=== PATIENT | female | born 1990 | race Caucasian/White ===

== ENCOUNTER 2021-04-23 10:48 | Observation (INO) | payer OTHER, SELFPAY ==
--- NOTE | ~2021-04-23 | CT_ITS ---
EXAMINATION: CT brain wo con DATE: 04/23/2021 11:33 INDICATION: Left-sided numbness. TECHNIQUE: Computed tomography (CT) of the head was performed without intravenous contrast. The mA wa s adjusted according to patient size. Iterative reconstruction technique was employed. The dose-lengt h product was 605.33 mGy-cm. COMPARISON: None FINDINGS: There is no intracranial hemorrhage, acute infarction, or abnormal intracranial mass lesion . The ventricles are normal in size. There is mild mucosal thickening in the ethmoid sinuses. The mas toid air cells are normal. The orbits are normal. There is right-sided superior scalp scarring. IMPRESSION: 1. Normal brain. Reviewed, dictated and finalized at location A. IMPRESSION: 1. Normal brain.
--- NOTE | ~2021-04-23 | XR_ITS ---
EXAMINATION: XR chest 1V portable INDICATION: Left-sided numbness TECHNIQUE: Portable AP chest at 1225 hours COMPARISON: 06/16/2019 FINDINGS: The lungs are free of acute opacities. There is no pleural effusion or pneumothorax. The ca rdiomediastinal silhouette is normal. The visualized osseous structures are unremarkable. IMPRESSION: 1. No acute cardiopulmonary abnormality. Reviewed, dictated and finalized at location B.
--- NOTE | ~2021-04-23 | MR_ITS ---
EXAMINATION: MR brain/brain stem wo/w con DATE: 04/24/2021 11:17 INDICATION: Left-sided numbness. TECHNIQUE: Magnetic resonance imaging (MRI) of the brain and brainstem was performed without and with 18 mL MultiHance intravenous contrast. Sequences included sagittal and axial T1-weighted FSE, axial diffusion-weighted FS EPI, axial T2*-weighted GRE, axial T2-weighted FLAIR Propeller, and axial T2-we ighted Propeller. Postcontrast sequences included axial and coronal T1-weighted FSE. Apparent diffusi on coefficient (ADC) maps were created. COMPARISON: Head CT 04/23/2021 FINDINGS: There is no intracranial hemorrhage, acute infarction, or abnormal intracranial mass lesion . The ventricles are normal in size. The orbits are normal. There is mild mucosal thickening in the e thmoid sinuses. The mastoid air cells are normal. IMPRESSION: 1. Normal brain. Reviewed, dictated and finalized at location A. IMPRESSION: 1. Normal brain.
--- NOTE | ~2021-04-23 | MR_ITS ---
EXAMINATION: MR cervical spine wo/w con DATE: 04/24/2021 11:17 INDICATION: Left-sided numbness. TECHNIQUE: Magnetic resonance imaging (MRI) of the cervical spine was performed without and with 18 m L MultiHance intravenous contrast. Sequences included sagittal and axial T2-weighted FSE, sagittal T2 -weighted FS FSE, and sagittal and axial T1-weighted FSE. Postcontrast sequences included sagittal an d axial T1-weighted FS FSE. COMPARISON: None FINDINGS: Motion artifact is noted. Vertebral body heights and intervertebral disc heights are normal . The spinal cord signal intensity is normal. The following disc levels are specifically discussed: C2-C3: The disc does not extend beyond the endplate margin. There is no uncovertebral joint osteoarth ritis. There is mild bilateral facet joint osteoarthritis. There is no neural foraminal stenosis. The re is no central canal stenosis. C3-C4: The disc does not extend beyond the endplate margin. There is no uncovertebral joint osteoarth ritis. There is no facet joint osteoarthritis. There is no neural foraminal stenosis. There is no alexander tral canal stenosis. C4-C5: The disc does not extend beyond the endplate margin. There is no uncovertebral joint osteoarth ritis. There is no facet joint osteoarthritis. There is no neural foraminal stenosis. There is no alexander tral canal stenosis. C5-C6: There is a central protrusion. There is no uncovertebral joint osteoarthritis. There is no fac et joint osteoarthritis. There is no neural foraminal stenosis. There is mild central canal stenosis. C6-C7: There is a central protrusion. There is no uncovertebral joint osteoarthritis. There is no fac et joint osteoarthritis. There is no neural foraminal stenosis. There is mild central canal stenosis. C7-T1: The disc does not extend beyond the endplate margin. There is no uncovertebral joint osteoarth ritis. There is moderate bilateral facet joint osteoarthritis. There is no neural foraminal stenosis. There is no central canal stenosis. IMPRESSION: 1. Normal spinal cord. Sensitivity is moderately decreased by motion artifact. 2. Mild cervical spondylosis. Reviewed, dictated and finalized at location A.
[2021-04-23 11:12] VITALS: BP 151/90; PULSE 79; RESP 18; TEMP 36.7; O2SAT 99
[2021-04-23 12:34] LABS: Basophils Percent Auto 0.3 % (0.2-1.2); Eosinophils Absolute Auto 0.2 K/mm3 (0-0.3); Hematocrit 41.6 % (37.0-47.0); Hemoglobin 13.7 g/dL (12.0-15.0); Immature Granulocyte Absolute 0.04 K/mm3 (0.00-0.031); Immature Granulocyte Percent A 0.4 % (0-0.5); Lymphocytes Absolute Auto 2.19 K/mm3 (0.9-3.2); Mean Corpuscular HGB Conc 32.9 g/dl (32-36); Mean Corpuscular Hemoglobin 28.9 pg (26-34); Mean Corpuscular Volume 87.8 fl (80-100); Mean Platelet Volume 10.1 fl (7.4-10.4); Monocytes Absolute Auto 0.6 K/mm3 (0.1-0.6); Monocytes Percent Auto 5.1 % (2.6-8.5); Neutrophils Absolute Auto 7.9 K/mm3 (1.3-6.7); Neutrophils Percent Auto 72.2 % (45.5-73.1); Platelet Count Result 461 k/mm3 (150-375); Red Blood Count 4.74 M/mm3 (4.2-5.4); Red Cell Distribution Width 13.6 % (11.5-14.5); White Blood Count 10.9 K/mm3 (4.5-10.0)
[2021-04-23 12:43] LABS: INR 0.9; Prothrombin Time 12.1 Seconds (11.1-14.7)
[2021-04-23 12:44] LABS: Alanine Aminotransferase 29 U/L (4-35); Albumin Level 4.7 g/dL (3.5-5.1); Alkaline Phosphatase 121 U/L (38-126); Anion Gap 11 mmol/L (8-16); Aspartate Amino Transferase 27 U/L (14-36); Bilirubin,Total 0.5 mg/dL (0.2-1.3); Blood Urea Nitrogen 5 mg/dL (7-17); Calcium 9.6 mg/dL (8.4-10.2); Carbon Dioxide 22 mmol/L (22-30); Chloride 107 mmol/L (98-107); Estimated CRCL calculation 109 ml/min; Estimated Glomerular Filt Rate > 60; Glucose 82 mg/dL (65-110); Partial Thromboplastin Time 32.2 SECONDS (22.3-36.8); Sodium 140 mmol/L (137-145)
--- NOTE | 2021-04-23 12:44 | ED.GENADULT ---
HPI - General Adult General Chief complaint: Extremity Problem,Nontraumatic Stated complaint: left hand numb x 3 weeks Time Seen by Provider: 04/23/21 11:08 Source: RN notes reviewed History of Present Illness HPI narrative: Patient presents to emergency department from home for left hand numbness. Patient states that she has had numbness in the left hand over the past 3 weeks when discussed further with the patient she has had numbness in the left arm and the left leg during this time the numbness is worse distally and improves proximally she denies any weakness of the left arm or leg she denies any numbness or weakness in the right arm or leg patient states that she has had no difficulty speaking she denies any fevers or chills chest pain shortness of breath or any other symptoms Related Data Home Medications Medication Instructions Recorded Confirmed spironolactone 100 mg PO DAILY 04/23/21 04/23/21 venlafaxine [Effexor] 75 mg PO DAILY 04/23/21 04/23/21 Allergies Allergy/AdvReac Type Severity Reaction Status Date / Time No Known Allergies Allergy Unknown Unverified 04/23/21 11:19 No Known Allergies Allergy Unknown Uncoded 04/23/21 11:19 Review of Systems Review of Systems: Gen.: Denies fevers or chills Eyes: Denies eye pain or visual change ENT: Denies congestion Respiratory: Denies shortness of breath or cough CV: Denies chest pain or palpitations GI: Denies abdominal pain nausea, emesis or diarrhea Musculoskeletal: Denies back pain or muscle pain Neuro: See HPI Skin: Denies rash Except as documented, all other systems reviewed and negative [facility] Past Medical History Medical History (Updated 04/23/21 @ 13:06 by Roverto Messer DO) Patient denies significant medical history Family History Family History (Updated 12/16/17 @ 15:42 by DOCTOR UNKNOWN) Other Family history of malignant neoplasm Hypertension Social History Social History Smoking status: Never smoker Alcohol intake: current Exam Narrative: APPEARANCE: No acute distress, nontoxic, resting in bed HEENT: Normocephalic, atraumatic, OMM, TMs clear bilaterally EYES: PERRL, EOMI NECK: Supple, nontender, full range of motion without pain, no meningismus RESPIRATORY: No respiratory distress, clear to auscultation bilaterally with no rhonchi wheezing or rales CARDIOVASCULAR: RRR s murmur ABDOMINAL: Soft, nontender, nondistended MUSCULOSKELETAL: Moves all extremities. No clubbing, cyanosis or edema. NEURO: A and O ?3, following commands, speech normal, cranial nerves II through XII grossly intact,muscle strength 5 out of 5 bilateral upper and lower extremities no pronator drift, decreased pinprick sensation in the left upper and lower extremities compared to the right pinprick is less distally and improves proximally two-point tactile discrimination to 5 mm in all 5 digits of the left hand SKIN:: Warm, dry. Normal Color PSYCHIATRIC: Normal affect/mood Course Course Emergency Course: Discussed with Dr. Mccurdy presentation and work-up recommends patient have a MRI of her brain and cervical spine Discussed with STAN Gay for Dr Multani presentation work-up agrees with mission at this time Discussed with patient and family results of workup and diagnosis. Discussed need for admission. Patient and family understand and agree to current treatment plan Vital Signs Vital signs: Vital Signs Temperature 98.0 F 04/23/21 11:12 Pulse Rate 79 04/23/21 11:12 Respiratory Rate 18 04/23/21 11:12 Blood Pressure 151/90 H 04/23/21 11:12 Pulse Oximetry 99 04/23/21 11:12 Temperature 98.0 F 04/23/21 11:12 Pulse Rate 79 04/23/21 11:12 Respiratory Rate 18 04/23/21 11:12 Blood Pressure 151/90 H 04/23/21 11:12 Pulse Oximetry 99 04/23/21 11:12 Medical Decision Making Vital Signs Vital Signs: Vital Signs Temperature 98.0 F 04/23/21 11:12 Pulse Rate 79 04/23
--- NOTE | 2021-04-23 12:48 | ECG_ITS ---
Measurements Intervals [place] Rate: 75 P: 22 FL: 146 QRS: -2 QRSD: 90 T: 24 QT: 364 QTc: 407 Interpretive Statements SINUS RHYTHM DELAYED PRECORDIAL R/S TRANSITION BASELINE ARTIFACT- I, II, AVR, AVL BORDERLINE ECG Electronically Signed On 04-23-2021 13:32:39 CDT by Rao Iverson D.O.
[2021-04-23 12:55] LABS: Troponin I < 0.012 ng/mL (0.000-0.034)
[2021-04-23 13:12] VITALS: BP 142/81; PULSE 77; TEMP 36.6; O2SAT 98
--- NOTE | 2021-04-23 14:06 | PC.NURSE ---
attempted to call report to floor. nurse not avaiable
--- NOTE | 2021-04-23 15:15 | PM.IMHP ---
H&P: HPI History of Present Illness Date/Time: 04/23/21 15:15 Chief Complaint: Left-sided numbness. Narrative: This is a 30-year-old female with depression, anxiety, and polycystic ovarian syndrome who presented to the emergency department earlier today via private vehicle from home for evaluation of left-sided numbness. About 3 weeks ago she was driving home from work when her left hand started to feel numb. Initially it was just around her 4th and 5th fingers but it progressed up her hand and through the upper arm and has been pretty consistent since that time. She describes it almost as as if it it had fallen asleep in a starting to wake back up. Since that time she has had intermittent paresthesias of the leg as well. Sometimes at night she will have mild numbness and tingling in her fingers but that resolves quite quickly when shaking her hands. The symptoms are quite different. She has no history of carpal or cubital tunnel. She denies neck pain and upper extremity weakness. No recent injuries, whiplash, or chiropractic adjustments. She has no history of stroke, multiple sclerosis, or B12 deficiency. The patient is right-handed. Review of Systems Review of Systems: Twelve systems were reviewed with pertinent positives and negatives as per HPI. No fever, chills, or sweats. No recent cold or flu symptoms. She denies auditory visual changes. No vertigo. No focal weakness. She denies palpitation, racing heart, history of cardiac dysrhythmia. No history of autoimmune disease. Except as documented, all other systems were reviewed and are negative. [facility] Past Medical History Medical History (Updated 04/24/21 @ 00:33 by Deidra Duque PA-C) Depression with anxiety Polycystic ovarian syndrome Surgical History Surgical History History of section x3. History of cholecystectomy History of dilation and curettage History of incisional hernia repair History of tubal ligation Family History Family History (Updated 04/24/21 @ 00:30 by Deidra Duque PA-C) Mother Hypertension Grandparent Cancer Father Chronic obstructive pulmonary disease Social History Social History (Updated 04/24/21 @ 00:31 by Deidra Duque PA-C) Social History: Surrogate decision maker: Teddy Angeles, spouse. Code status: Full code. Smoking status: Never smoker Second hand tobacco smoke exposure: No Alcohol intake: never Substance use type: marijuana Last use: 04/22/21 Additional living arrangements comments: The patient lives in [place] with her and 3 children. Additional occupation/education comments: Works at a [employer] office. Sexual Orientation (if Verbalized by the Patient): . Meds Home Medications and Allergies Home Medications Medication Instructions Recorded Confirmed Type spironolactone 100 mg PO DAILY 04/23/21 04/23/21 History venlafaxine [Effexor] 75 mg PO DAILY 04/23/21 04/23/21 History Allergies Allergy/AdvReac Type Severity Reaction Status Date / Time No Known Allergies Allergy Unknown Unverified 04/23/21 11:19 Vital Signs Vital Signs - 24 hr 04/23/21 11:12 04/23/21 13:12 Temperature 98.0 F 98 F Pulse Rate 79 77 Respiratory Rate 18 Blood Pressure 151/90 H 142/81 H Pulse Oximetry 99 98 Exam Narrative: General: Well-developed female in the semi-Guillen position in bed in no distress. Weight: 94.1 kg. BMI: 39.2. HEENT: Normocephalic, atraumatic. PERRL, EOMI. Sclerae anicteric. Oral mucosa moist. Oropharynx clear. Neck: Supple. No carotid bruits. Respiratory: Lungs are clear to auscultation bilaterally. Cardiovascular: Regular rate and rhythm with S1-S2. Gastrointestinal: Abdomen is soft, nontender, and nondistended with positive bowel sounds. Skin: Warm and dry. No rash or lesions on limited exam. Extremities: No cyanosis, clubbing, or edema. Radial and pedal pulses intact. Neur
--- NOTE | 2021-04-23 15:35 | ADMGEN ---
This patient, Marisol Angeles, was admitted to Medical Room 260-01. Patient oriented to hospital policies and general routines including ID bracelet, bed and alarms, visiting hours, pain management, procedures, bathroom and other care routines, personal items, smoking policy, room service/diet, and visiting hours. Information on how to activate the Rapid Response Team has been discussed. Patient/Family are encouraged to report perceived risks to care and to ask questions if they do not understand what they are told or what they should do.
[2021-04-23 15:38] VITALS: BMI 39.2
[2021-04-23 17:00] VITALS: BP 135/81; PULSE 70; RESP 18; TEMP 36.2; O2SAT 98
[2021-04-23 17:01] VITALS: PULSE 72
[2021-04-23 20:00] VITALS: PULSE 67
[2021-04-23 22:00] VITALS: BP 122/70; PULSE 62; RESP 16; TEMP 36.4; O2SAT 100
[2021-04-24] VITALS (7 sets, daily range): BP systolic 125–131; BP diastolic 67–72; PULSE 56–92; RESP 16–18; TEMP 35.6–36.7; O2SAT 99–100
[2021-04-24 06:04] LABS: Cholesterol 193 mg/dL (0-200); HDL Direct 38 mg/dL; Triglycerides 157 mg/dL (<150)
[2021-04-24 06:16] LABS: LDL Cholesterol Direct 111 mg/dL
[2021-04-24] MEDS: VENLAFAXINE HCL 75 MG TABLET PO (08:40)
[2021-04-24] MEDS: SPIRONOLACTONE 50 MG TABLET 100 MG PO (08:40)
--- NOTE | 2021-04-24 11:41 | WPDNEURCNPN ---
Consult date: 05/15/21 Time Seen: 11:00 HPI: Marisol Angeles is a 30 year old female Has been admitted to [facility] through the emergency room for the complaints of left-sided numbness in addition to the ongoing history of 1. Depression 2. Anxiety 3. Polycystic ovarian syndrome 4. History of multiple surgeries such as x3, cholecystectomy, D and C, incisional hernia repair, and tubal ligation. Is no history of alcohol consumption, she is not a smoker, but does have a history of use of marijuana, evaluation up until now includes a CBC with no leukocytosis platelet count of 461, triglycerides of 151 with cholesterol 193 and HDL of only 38 B12 529 TSH 1.5 x-ray chest negative Review of Systems Review of Systems: All systems reviewed & are unremarkable except as noted in HPI and below PMFSH Past Medical History Medical History Depression with anxiety Polycystic ovarian syndrome Surgical History Surgical History History of section x3. History of cholecystectomy History of dilation and curettage History of incisional hernia repair History of tubal ligation Family History Family History Mother Hypertension Grandparent Cancer Father Chronic obstructive pulmonary disease Social History Social History Social History: Surrogate decision maker: Teddy Angeles, spouse. Code status: Full code. Smoking status: Never smoker Second hand tobacco smoke exposure: No Alcohol intake: never Substance use type: marijuana Last use: 04/22/21 Additional living arrangements comments: The patient lives in [place] with her and 3 children. Additional occupation/education comments: Works at a [employer] office. Sexual Orientation (if Verbalized by the Patient): . Meds Home Medications and Allergies Home Medications Medication Instructions Recorded Confirmed Type spironolactone 100 mg PO DAILY 04/23/21 04/23/21 History venlafaxine 75 mg PO DAILY 04/23/21 04/23/21 History Allergies Allergy/AdvReac Type Severity Reaction Status Date / Time No Known Allergies Allergy Unknown Unverified 04/23/21 11:19 Vital Signs Vital Signs - 24 hr 04/23/21 13:12 04/23/21 17:00 04/23/21 17:01 Temperature 36.6 C 36.2 C L Pulse Rate 77 70 72 Respiratory Rate 18 Blood Pressure 142/81 H 135/81 Pulse Oximetry 98 98 04/23/21 20:00 04/23/21 22:00 04/24/21 00:00 Temperature 36.4 C Pulse Rate 67 62 64 Respiratory Rate 16 Blood Pressure 122/70 Pulse Oximetry 100 04/24/21 04:00 04/24/21 06:00 Temperature 36.7 C Pulse Rate 56 L 72 Respiratory Rate 16 Blood Pressure 131/67 Pulse Oximetry 100 Results Labs CBC & Chem 7: 04/23/21 12:21 04/23/21 12:21 Labs: Short CBC 04/23/21 Range/Units 12:21 WBC 10.9 H (4.5-10.0) K/mm3 Hgb 13.7 (12.0-15.0) g/dL Hct 41.6 (37.0-47.0) % Plt Count 461 H (150-375) k/mm3 BMP 04/23/21 12:21 Sodium 140 Potassium 4.0 Chloride 107 Carbon Dioxide 22 BUN 5 L Creatinine 0.70 Glucose 82 Calcium 9.6 Cardiac Enzymes 04/23/21 Range/Units 12:21 Troponin I < 0.012 (0.000-0.034) ng/mL Liver Function 04/23/21 Range/Units 12:21 Total Bilirubin 0.5 (0.2-1.3) mg/dL AST 27 (14-36) U/L ALT 29 (4-35) U/L Alkaline Phosphatase 121 (38-126) U/L Albumin 4.7 (3.5-5.1) g/dL Quality VTE Prophylaxis VTE prophylaxis: mechanical ordered
--- NOTE | 2021-04-24 16:50 | PM.DS ---
DS: Admitting Diagnosis Admitting Diagnosis LUE numbness DS: Discharge Diagnosis Discharge Diagnosis (1) Polycystic ovarian syndrome: Code(s): E28.2 - Polycystic ovarian syndrome Status: Acute (2) Left sided numbness: Code(s): R20.0 - Anesthesia of skin Status: Acute (3) Leukocytosis: Qualifiers: Leukocytosis type: unspecified Qualified Code(s): D72.829 - Elevated white blood cell count, unspecified Code(s): D72.829 - Elevated white blood cell count, unspecified Status: Acute (4) Thrombocytosis: Code(s): D47.3 - Essential (hemorrhagic) thrombocythemia Status: Acute (5) Hypertriglyceridemia: Code(s): E78.1 - Pure hyperglyceridemia Status: Acute DS: Summary Hospital Course Reason for hospitalization: Left sided numbness Hospital Course: 30-year-old female with past medical history of depression, anxiety and polycystic ovarian syndrome presented with complaints of left-sided numbness. Patient was worked up for possible stroke for which a CT head and MRI was done however it did not reveal any concerning findings. Given her age and laterality of her symptoms she was also worked up for multiple sclerosis with MRI of the brain and cervical spine however did not reveal any concerning findings. Patient reports that she noted left-sided numbness on her 4th and 5th digit about 3 weeks ago which gradually increased and included the entire upper left arm, she is now occasionally also getting numbness tingling and paresthesias over the left leg as well and often times on her left side of the face as well. The exam revealed left-sided decrease and perception of blunt and sharp sensations. Temperature sensations were intact to. The right upper and lower extremity showed hyper esthesia. The MRI of the cervical spine did reveal some concerns cervical spondylosis possible her neurological findings are related to this. She did have a slightly elevated WBC to 10.9 which is being considered as reactive. She also was noted to have a platelet count of 461, this is also possibly reactive. Patient was also seen by Neurology and is being recommended outpatient follow-up for further care. Time Spent with Patient Time attestation: Total time spent providing and/or coordinating discharge services: Greater than 30 minutes Exam Const: General: cooperative HENMT: Head: normal to inspection Eyes: General: appearance normal, both eyes and all related structures Neck: Neck: normal visual inspection Chest: Chest palpation & inspection: normal inspection of the chest Resp: Effort & Inspection: normal respiratory effort Auscultation: clear to auscultation bilaterally Cardio: Jugular venous distension: no JVD Palpation: normal PMI Rate: regular rate Rhythm: regular rhythm Heart sounds: S1 normal heart sound present and S2 normal heart sound present GI: Inspection: normal to inspection GI Palp: Yes Soft to palpation Auscultation: normal bowel sounds : General: Yes bimanual renal exam normal bilaterally Back/Spine/Pelvis: Back: no CVA tenderness Skin: General skin exam: normal color, no rashes or lesions noted and elasticity normal Neuro: General: oriented to person, oriented to place and oriented to time Cranial nerves: Yes CN's II-XII intact bilaterally and Yes Nystagmus not present Speech: normal speech Gait exam (Neuro): Normal gait present Motor exam (neuro): 5/5 motor strength present throughout Sensory Exam: other (decreased sensory perception LUE and LLE; hyperaesthesia over the RUE, RLE) Deep tendon reflexes (DTR's): Rt Biceps (C5, C6): 2+ and Left biceps reflex intensity grade: 2+ Extrem: General: normal to inspection, full ROM and capillary refill normal Psych: Appearance: grossly normal DS: Data Data Completed and Pending Labs on day of discharge: Labs from last 24 hours 04/24/21 04/24/21 05:14 05:13 Triglycerides 157 H Cholesterol 193 LDL C
== END 2021-04-24 17:39 | disposition home or self-care (01) ==
LOC: ANHED 13:06 → ANH2MED 15:17
PROVIDERS: Physician Assistant; Admitting Provider Internal Medicine; Emergency Provider Emergency Medicine; PCP Internal Medicine Infectious Disease; Visit Provider Internal Medicine
DX: E28.2 Polycystic ovarian syndrome (principal); R20.0 Anesthesia of skin; D72.829 Elevated white blood cell count, unspecified; D47.3 Essential (hemorrhagic) thrombocythemia; E87.1 Hypo-osmolality and hyponatremia; F41.8 Other specified anxiety disorders; F12.90 Cannabis use, unspecified, uncomplicated; Z79.899 Other long term (current) drug therapy
CPT/HCPCS: 36415; 70450; 70553; 71045; 72156; 80053; 80061; 82607; 84443; 84484; 85025; 85610; 85730; 93005; 99285; A9270; A9577; G0378; G0379

== ENCOUNTER 2021-07-08 09:35 | Outpatient (CLI) | payer OTHER, SELFPAY ==
--- NOTE | 2021-07-08 11:00 | NEURO_ITS ---
Impression: # Complains of left upper and lower extremity numbness. # Normal nerve conduction study of left upper and lower extremities. # Normal needle/EMG exam. # Considering left side involvement cervical and brain evaluation needs to be done. Nerve Conduction Studies Anti Sensory Summary Table Stim Site NR Peak (ms) P-T Amp (?V) Site1 Site2 Delta-P (ms) Dist (cm) Andre (m/s) Left Median Anti Sensory (2-3nd Digit) Wrist 2.6 76.2 Wrist 2-3nd Digit 2.6 14.0 54 Wrist 2.7 90.1 Wrist 2-3nd Digit 2.6 14.0 54 Left Radial Anti Sensory (Base 1st Digit) Wrist 1.7 16.8 Wrist Base 1st Digit 1.7 0.0 Left Sup Fibular Anti Sensory (Ant Lat Mall) 14 cm 2.4 19.5 14 cm Ant Lat Mall 2.4 12.0 50 Left Sural Anti Sensory (Lat Mall) Calf 3.3 38.9 Calf Lat Mall 3.3 16.0 48 Left Ulnar Anti Sensory (5th Digit) Wrist 2.1 58.9 Wrist 5th Digit 2.1 14.0 67 Motor Summary Table Stim Site NR Onset (ms) O-P Amp (mV) Site1 Site2 Delta-0 (ms) Dist (cm) Andre (m/s) Left Median Motor (Abd Poll Brev) Wrist 2.5 6.4 Elbow Wrist 3.8 26.0 68 Elbow 6.3 6.0 Left Peroneal Motor (Vastus Med) Ankle 3.3 7.5 Popit Ankle 6.5 36.0 55 Popit 9.8 7.4 Left Tibial Motor (Abd Ritchie Brev) Ankle 3.9 6.0 Knee Ankle 7.2 37.0 51 Knee 11.1 7.5 Left Ulnar Motor (Abd Dig Minimi) Wrist 2.0 6.5 A Elbow Wrist 5.7 29.0 51 A Elbow 7.7 3.8 B Elbow Wrist 3.9 22.0 56 B Elbow 5.9 6.4 F Wave Studies NR F-Lat (ms) L-R F-Lat (ms) Left Median (Mrkrs) (Abd Poll Brev) 22.87 Left Peroneal (Mrkrs) (EDB) 40.54 Left Tibial (Mrkrs) (Abd Hallucis) 41.49 Left Ulnar (Mrkrs) (Abd Dig Min) 22.78 EMG Side Muscle Nerve Root Ins Act Fibs Amp Dur Recrt Comment Left 1stDorInt Ulnar C8-T1 Nml Nml Nml Nml Nml Left Ext Indicis Radial (Post Int) C7-8 Nml Nml Nml Nml Nml Left Ext Digitorum Radial (Post Int) C7-8 Nml Nml Nml Nml Nml Left BrachioRad Radial C5-6 Nml Nml Nml Nml Nml Left PronatorTeres Median C6-7 Nml Nml Nml Nml Nml Left Abd Poll Brev Median C8-T1 Nml Nml Nml Nml Nml Left AntTibialis Dp Br Fibular L4-5 Nml Nml Nml Nml Nml Left Gastroc Tibial S1-2 Nml Nml Nml Nml Nml Left Fibularis Long Sup Br Fibular L5-S1 Nml Nml Nml Nml Nml Left Flex Dig Long Tibial L5-S2 Nml Nml Nml Nml Nml Left Ext Dig Brev Dp Br Fibular L5, S1 Nml Nml Nml Nml Nml MTDD
== END 2021-07-08 09:36 | disposition home or self-care (01) ==
PROVIDERS: PCP Internal Medicine Infectious Disease; Visit Provider Internal Medicine Infectious Disease
DX: R20.2 Paresthesia of skin (principal)
CPT/HCPCS: 95886; 95911

== ENCOUNTER 2022-11-17 08:23 | Outpatient (CLI) | payer OTHER, SELFPAY ==
--- NOTE | 2022-11-17 11:00 | NEURO_ITS ---
Impression: # Complains of intermittent numbness of hands. # No Carpal Tunnel Syndrome or ulnar neuropathy. # Normal needle/EMG exam including Biceps. # Clinical correlation recommended. Motor Nerve Conduction Upper Extremities Median Nerve Conduction Velocity (m/sec) Terminal Latency (msec) Response Voltage(mV) Elbow-Wrist Wrist Elbow Wrist Right 60 3.2 9 7 Left 62 3.1 5 5 Ulnar Nerve Conduction Velocity (m/sec) Terminal Latency (msec) Response Voltage(mV) Above Elbow Below Elbow Wrist Above Elbow Below Elbow Wrist Right 59 2.0 6 9 Left 60 2.3 5 7 F-Wave Latency Median (ms) Ulnar (ms) Right 24.5 23.7 Left 23.6 23.8 Sensory Nerve Conduction Upper Extremities Median Nerve Stimulation Terminal Latency (msec) Wrist/Digit Response Voltage (uV) Wrist Right 3.3/3.3 21/22 Left 2.9/2.8 88/92 Ulnar Nerve Stimulation Terminal Latency (msec) Wrist/Digit Response Voltage (uV) Wrist Right 2.3 22 Left 2.4 53 Radial Nerve Terminal Latency (msec) Response Voltage(mV) Right 1.9 41 Left 2.0 41 Left Right Muscles Examined Fibrillation Fasciculation Scarcity Voltage Duration Left Right Left Right Left Right Left Right Left Right X X Deltoid X X Biceps X X Brachioradialis X X Triceps X X Pronator Teres X X Ext Indicis X X Ext Digitorum X X Abd Poll Brev X X 1st Dorsal Interosseus Paraspinals MTDD
== END 2022-11-17 08:24 | disposition home or self-care (01) ==
LOC: ANHNEURO 08:25
PROVIDERS: PCP Internal Medicine Infectious Disease; Visit Provider Psychiatry & Neurology Neurology
DX: R20.2 Paresthesia of skin (principal)
CPT/HCPCS: 95886; 95911

== ENCOUNTER 2023-04-09 15:28 | Outpatient (CLI) | payer OTHER, SELFPAY ==
--- NOTE | ~2023-04-09 | MR_ITS ---
EXAMINATION: MR brain/brain stem wo/w con DATE: 04/09/2023 16:15 INDICATION: R20.0 - Anesthesia of skin TECHNIQUE: Magnetic resonance imaging (MRI) of the brain and brainstem was performed without and with 18 mL MultiHance intravenous contrast. Sequences included sagittal and axial T1-weighted SE, axial d iffusion-weighted FS EPI ASSET, axial T2*-weighted GRE, axial T2-weighted FLAIR Propeller, and axial T2-weighted Propeller. Postcontrast axial and coronal T1-weighted SE was obtained. Apparent diffusion coefficient (ADC) maps were created. COMPARISON: MR brain 04/24/2021 FINDINGS: No abnormal restricted diffusion to suggest acute ischemic infarct. No MRI evidence of hemorrhage or extra-axial collection. No abnormal enhancing lesion. No suspicious foci of susceptibility to suggest prior intraparenchymal hemorrhage. Normal white matter signal. No evidence of advanced or lobar pred ominant parenchymal volume loss. The basilar cisterns are patent. Flow voids are preserved. Paranasal sinuses are within normal limits. Globes and orbital contents are within normal limits. IMPRESSION: Normal MR brain findings. Reviewed, dictated and finalized at location K. IMPRESSION: Normal MR brain findings.
== END 2023-04-09 15:29 | disposition home or self-care (01) ==
LOC: ANHIMG 15:29
PROVIDERS: PCP Internal Medicine Infectious Disease; Visit Provider Student in an Organized Health Care Education/Training Program
DX: R20.0 Anesthesia of skin (principal)
CPT/HCPCS: 70553; A9577

== ENCOUNTER 2023-06-23 03:04 | Day surgery (SDC) | payer OTHER, SELFPAY ==
[2023-06-10 12:40] VITALS: BMI 37.0
--- NOTE | 2023-06-10 12:44 | PC.NURSE ---
Report to the Outpatient Waiting Room, entrance under the green pavilion located off [facility], at time 0930 on date 06/23/23. Planned Procedure Time: 1130. Time changes happen often and if your time is changed the preop area will call you the afternoon before. - You and your visitor will be asked to self-screen and do not enter if you have any COVID symptoms. - A mask is optional within the hospital at this time. Patients may have clear liquids (water, carbonated beverages, clear teas, apple juice) until 3 hours prior to surgery with a maximum of 20 ounces. - No food from midnight until time of surgery Take the following medications with a SIP of water the morning of surgery: CLONAZEPAM IF NEEDED, GABAPENTIN, VENLAFAXINE DO NOT STOP ANY OF YOUR OTHER PRESCRIPTION MEDICATIONS PRIOR TO SURGERY ?EXCEPT THE FOLLOWING Medications to discontinue per physician: N/A Date to take last dose: N/A Please no make-up, nail spanish, hairspray, perfume, deodorant, or body powder the day of surgery. No jewelry (including any body piercings) or valuables the day of surgery, leave them at home. Please take a shower or bath the night before, or the morning of, surgery with an antibacterial soap. Wear comfortable, loose fitting clothing. - Jewelry must be removed prior to entering the operating room. Rings and piercings that are not removed may be cut off. - The hospital will not accept responsibility for valuables. - Please leave all valuables, including medications, at home the day of surgery. If you are going home after surgery, a licensed car pick up driver must drive you home. - NO public transportation without another adult if you receive anesthesia. - We recommend that an adult stay with you for 24 hours following discharge. - We also recommend that you do not drive, make important decision, drink alcoholic beverages, or take any drugs that were not prescribed by your health care provider for at least 24 hours after your discharge time. Follow any additional instructions given to you from your surgeon. If you or anyone in your household have experienced Covid symptoms in the past week, please notify your surgeon or the nurse liaison at the phone number below for possible testing. Telephone instructions given to PT - GO LEBLANC and asked if any additional questions and then verbalized understanding. Patient advised to call surgeon office or pre surgery nurse liaison [phone] if any additional questions.
[2023-06-23 09:43] VITALS: BP 112/95; PULSE 80; RESP 20; TEMP 36.5; O2SAT 99
[2023-06-23] MEDS: LACTATED RINGERS 1,000 ML 30 ML IV CONT ×2 (10:01→13:08)
[2023-06-23] MEDS: ACETAMINOPHEN 500 MG TABLET 1000 MG PO (10:02)
--- NOTE | 2023-06-23 11:44 | WPDANESEPPF ---
Anes - Initial Pre Proc Eval Procedure: Operation Date: 06/23/23 11:30 Proposed Procedures p Hysteroscopy with Ida Endometrial Ablation - Bety Smith MD Date/Time: 06/23/23 11:44 Surgeon: Bety Smith MD Pre Op Diagnosis: Menorrhagia Patient Data Age: 32 Gender: F Height: 1.55 m Weight: 86.4 kg Last Vital Signs Temp 36.5 C 06/23/23 09:43 Pulse 80 06/23/23 09:43 Resp 20 06/23/23 09:43 BP 112/95 H 06/23/23 09:43 Pulse Ox 99 06/23/23 09:43 O2 Del Method Room Air 06/23/23 09:43 Allergies Allergy/AdvReac Type Severity Reaction Status Date / Time No Known Allergies Allergy Unknown Verified 06/23/23 09:41 Home Medications Medication Instructions Recorded Confirmed Type spironolactone 100 mg tablet 100 mg PO DAILY PCOS 04/23/21 06/10/23 History aripiprazole 5 mg tablet (Abilify) 5 mg PO HS 10/08/21 06/10/23 History trazodone 50 mg tablet 50 mg PO BID 10/08/21 06/10/23 History venlafaxine 150 mg tablet,extended 150 mg PO DAILY 10/08/21 06/10/23 History release 24 hr venlafaxine 37.5 mg 37.5 mg PO DAILY 10/08/21 06/10/23 History tablet,extended release 24 hr clonazepam 1 mg tablet 1 mg PO DAILY PRN Anxiety 03/23/23 06/10/23 History gabapentin 300 mg capsule 300 mg PO TID #90 caps 03/23/23 06/10/23 Rx Patient hx anesthesia problems: none Family hx anesthesia problems: none Results Review: All pre-operative results and documents have been reviewed as part of the pre-operative evaluation. [facility] Past Medical History Medical History Depression with anxiety Polycystic ovarian syndrome Surgical History Surgical History History of section x3. History of cholecystectomy History of dilation and curettage History of incisional hernia repair History of tubal ligation Family History Family History Mother Hypertension Grandparent Cancer Father Chronic obstructive pulmonary disease Social History Social History Social History: Surrogate decision maker: Teddy Angeles, spouse. Code status: Full code. Smoking packs per day: 1 Smoking cigarettes per day: 20.0 Years smoked: 5 Smoking pack-years: 5.00 Smoking status: Former smoker Tobacco type: cigarettes Second hand tobacco smoke exposure: No Smoking end date: 09/13/12 Alcohol intake: current Alcohol use details: SPECIAL OCCASIONS Substance use: current Substance use type: marijuana Last use: 04/22/21 Lack of Transportation: No Lack of Food: Never True Current Housing: I Have Housing Concerned About Future Housing: No Difficulty Paying Gas/Electric Bills: No Difficulty Paying for Meds: No Currently Unemployed: No Education: Associate Degree Difficulty w/ Childcare or Family Care: No Living arrangements: with family Additional living arrangements comments: The patient lives in [place] with her and 3 children. Additional occupation/education comments: Works at a [email or web address]. Gender identity (if verbalized by the patient): Female Sexual Orientation (if Verbalized by the Patient): . Spiritual care concerns: No Anes - Eval Final PreProcedure Day of Procedure 06/23/23 11:44 Patient weight: obese Heart: regular rate and rhythm Lungs: clear to auscultation Airway: Mallampati scale class II Neurological: alert and oriented Last oral intake: >/= 8 hours ASA classification: III Emergent: no Anesthetic plan: proceed Anesthesia type and monitoring: general GIVS and standard monitoring Results Review: All pre-operative results and documents have been reviewed as part of the pre-operative evaluation. Informed Consent: The patient's anesthetic plan and its attendant risks and benefits were discussed with the patient/family
--- NOTE | 2023-06-23 12:31 | WPDHPUPDATE1 ---
History and Physical Update Update Date/Time: 06/23/23 12:31 History and Physical has been reviewed, including an updated exam of the patient. There are NO changes in the patient's condition. Risks, benefits, and alternatives have been discussed and questions answered. Patient agrees to proceed with procedure.
[2023-06-23 13:08] VITALS: BP 130/72; PULSE 75; RESP 18; TEMP 36; O2SAT 99
--- NOTE | 2023-06-23 13:14 | W.PM.PROC2 ---
Procedure Note - Detailed Date of Procedure 06/23/23 Pre-op Diagnosis Menorrhagia Post-op Diagnosis Same Procedure Performed endometrial ablation with hysteroscopy d&c Surgeon Bety Smtih MD Anesthesia MAC Indications Severe menorrhagia Findings Normal vulva vagina and cervix. Normal endometrium. Description of Procedure The patient was taken to the operating room. She was prepped and draped in the dorsal lithotomy position after induction of mac anesthesia. A speculum was placed in the vagina. Cervix grasped with a tenaculum. The cervix was dilated to about 1 cm. The hysteroscope was inserted. The above findings were noted. Endometrial curettage was performed with a medium-size curette. All surfaces of the endometrium were affected by the curettage. The specimens were collected and sent to pathology. Measurements were taken of the uterus and cervix. The uterine length was then entered into the hand piece of the Ida device. The device was inserted into the intrauterine cavity. The array of the device was expanded. The balloon cuff was inflated. A good seal was achieved. The energy and safety cycles were initiated and completed. The array was collapsed and the instrument was withdrawn after deflating the balloon cuff. Hysteroscope was reinserted. Above findings were noted. The hysteroscope was removed. The patient tolerated the procedure well. The speculum and tenaculum were removed. She was taken to recovery in stable condition. Sponge lap and needle counts were correct x2. Estimated Blood Loss 15 Pathology Yes Complications No immediate complications Condition Stable Disposition Same day
[2023-06-23 13:20] VITALS: BP 114/75; PULSE 48; RESP 18; O2SAT 99
--- NOTE | 2023-06-23 13:33 | SUR.PHASEI ---
CORRECTION: NO IV BAG WAS INITIATED IN PACU.
[2023-06-23 13:37] VITALS: BP 113/65; PULSE 45
[2023-06-23] MEDS: ONDANSETRON INJ 4 MG/2 ML VIAL IV PUSH (13:50)
[2023-06-23] MEDS: oxyCODONE HCL (*CRX) 5 MG TAB IR PO (13:55)
[2023-06-23] MEDS: KETOROLAC 30 MG/ML VIAL (*BKC) IV PUSH (14:03)
[2023-06-23 14:05] VITALS: BP 105/67; PULSE 50
[2023-06-23 14:35] VITALS: BP 130/75; PULSE 63
== END 2023-06-23 14:56 | disposition home or self-care (01) ==
PROVIDERS: PCP Internal Medicine Infectious Disease; Visit Provider Obstetrics & Gynecology
PROC: 0U5B8ZZ Destruction of Endometrium, Via Natural or Artificial Opening Endoscopic (ICD-10-PCS; CPT 58563; principal; 2023-06-23 11:30)
DX: N92.0 Excessive and frequent menstruation with regular cycle (principal); F41.8 Other specified anxiety disorders; E28.2 Polycystic ovarian syndrome; Z87.891 Personal history of nicotine dependence; F12.90 Cannabis use, unspecified, uncomplicated; E66.9 Obesity, unspecified; Z68.36 Body mass index [BMI] 36.0-36.9, adult
CPT/HCPCS: 58563; 88305; A9270; J1100; J1885; J2250; J2405; J2704; J3010; J7120

== ENCOUNTER 2025-04-04 09:34 | Outpatient (CLI) | payer OTHER, SELFPAY ==
--- OUTSIDE RECORDS SUMMARY | 2025-04-04 09:44 | XMS_ITS | Clinical Summary ---
Author Organization [facility] Address [address] [place] [address] Care Team Providers Care Product Operations Associate Name Role Phone Josephine Sanchez MD Primary Care Provider Source Comments [facility] [employer],non-owned Affiliates and Associated Physician Practices is amultiple site organization consisting of ambulatory clinics and hospital sitesin [place], [place], [place] and [place]. This disclosure is being madepursuant to the Care Everywhere program and may not contain all information available regarding this patient. Last updated 18.[facility] [employer] Allergies No known active allergies Social History Tobacco Use Types Packs/Day Years Used Date Smoking Tobacco: Never Smokeless Tobacco: Never Comments No Sex and Gender Information Value Date Recorded Sex Assigned at Not on file Legal Sex Female 5:18 PM [employer] Gender Identity Not on file Sexual Orientation Not on file Last Filed Vital Signs Vital Sign Reading Time Taken Comments Blood Pressure 126/78 09/04/2017 10:06 AM [employer] Pulse 70 09/04/2017 10:06 AM [employer] Temperature 37.2 C (99 F) 09/04/2017 10:06 AM [employer] Respiratory Rate - - Oxygen Saturation 98% 09/04/2017 10:06 AM [employer] Inhaled Oxygen Concentration - - Weight 90.7 kg (200 lb) 09/04/2017 10:06 AM [employer] HEL[employer] Height 154.9 cm (5' 1) 09/04/2017 10:06 AM [employer]IC HEL[employer] Body Mass Index 37.79 09/04/2017 10:06 AM [employer] HEL[employer] Plan of Treatment Health Maintenance Due Date Last Done Comments HIV SCREENING 2004 HEPATITIS C SCREENING 07/18/2007 DTAP/TDAP/TD VACCINES (1 - Tdap) 2008 HEPATITIS B VACCINE (1 of 3 - 19+ 3-dose series) 2008 PAP SMEAR 2010 HPV VACCINE (1 - 3-dose SCDM series) 2016 COVID-19 VACCINE (1 - 2023-2 5 season) 2024 DEPRESSION SCREENING 09/13/2024 INFLUENZA VACCINE (#1) 2025 ZOSTER VACCINE (1 of 2) 2039 HIB VACCINE Aged Out No longer eligi ble based on patient's age to complete this topic MENINGOCOCCAL (Group B) VACC INE SHARED DECISION-MAKING Aged Out No longer eligibl e based on patient's age to complete this topic MENINGOCOCCAL GROUPS A/C/Y/W VACCINE Aged Out No longer eligible b ased on patient's age to complete this topic PNEUMOCOCCAL VACCINE Aged Out No long er eligible based on patient's age to complete this topic Insurance [facility] Care Teams Product Operations Associate Relationship Specialty Start Date End Date Josephine Sanchez MD [address], [place] [id number] PCP - General Internal Medicine 09/04/17
--- OUTSIDE RECORDS SUMMARY | 2025-04-04 09:45 | XMS_ITS | Data Portability ---
Author Organization [facility] Address [address] [place] [address] [place] [address] Care Team Providers Care Wax Blender Name Role Phone KAZ BURT Primary Care Provider Assessment Encounter Date Assessment Date Assessment LastModified by Organization Details LastModified Time 08/28/2024 08/28/2024 Annual gynecological exam performed. Patient will come back in a year unless there are new symptoms. Not available 08/28/2024 17:14:20 Plan of Treatment Reminders Order Date Submit Date Provider Last Modified By Organization Details Last Modified Time Details Appointments None recorded. Lab None recorded. Referral None recorded. Procedures None recorded. Surgeries None recorded. Imaging US, transvagina l 2022 023 [email or web address] [address], [address], [place], [address], 18:07:26 Medication Orders None recorded. Patient TargetsNo targets recorded. Patient InstructionsNo instructions recorded. Reason for Referral None Reported. Results Created Date Observation Date Name Description Value Unit Range Abnormal Flag Note LastModifiedBy Organization Detail LastModifiedTime 08/28/20 24 08/28/2024 IMAGE GUIDE D PAP AND HPV REGAR DLESS image guided Pap, HPV regardless of Pap result SEE RESULT S BELOW abnormal CASE REPOR T: Cytol ogy Gynec ologi elin Repor t Case: [id number] Autho betzy g Provi brad: Eva Smith MD Colle cted: 08/28 1712 Order ing Locat ion: [place] [facility] Recei alberto: 08/29 0153 First Eric n: Hali Walsh, CT Rescr een: Nydia Triana, PUJA Speci men: Eric dailey Pap - Image d, Cervi x STATE MENT OF ADEQU ACY: Satis facto ry for evalu ation Trans forma tion zone compo nent prese nt ----- ----- ----- ----- ----- ----- ----- ----- ----- ----- ----- ----- ----- ----- ----- ----- ----- ---- FINAL DIAGN OSIS: Negat katarina for Intra epith elial Binta olmedo or Carmen lynn (NIL) . Shift in pati sugge stive of bacte rial vagin osis. 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 This assay can diffe renti ate HPV 16 from HPV 18/45 , but does not diffe renti ate betwe en HPV 18 and HPV 45. A negat katarina HPV 16, 18/45 genot ype assay resul t does not exclu de the possi bilit y of cytol ogic abnor malit ies or of futur e or under lying MERISSA 1, MERISSA 3 or cance r. COMME NT: This speci men was revie wed by a Cytot echno logis t and/o r Patho logis t (as indic ated in this repor t) after evalu ation using the Thinp rep Imagi ng Syste m. CLINI ELIN INFOR MATIO N: Menst rual Statu s: LMP (if appli cable ): Clini elin Histo ry/Pr eviou s Pap: Type of Neopl manuel (if appli cable ): Signi fican t Clini elin Findi ngs: Other Histo ry: Hormo abhijeet (if appli cable ): PAP EDUCA ROSEANN L NOTE: The Pap Test is a scree asim test with an inher ent false negat katarina rate. Liqui d-bas ed sampl ing may decre ase, but will not elimi crispin, false negat katarina resul ts. A negat katarina resul t does not precl ude the prese nce and/o r devel opmen t of disea se, since the prese nce of abnor mal cells in the sampl e depen ds on the locat ion of the lesio n and sampl ing techn ique. Kathy nued regul ar scree asim is the best metho d of cance r preve ntion . If repor gali cytol ogic findi ng do not corre late with physi elin and/o r histo rical findi ngs, furth er inves tigat ion is recom marsha d, as clini alexis perkins nted. Not Available [facility] (Lab) [address], [place], [address], 09/07/2024 15:17:31 05/31/2005/31/2023 US, pelvi s No observ ation record ed. [email or web address] [address], [place], [address], 06/04/2023 11:29:30 05/31/20 23 05/31/2023 US, trans vagin al No observ ation record ed. [email or web address] [address], [place], [address], 06/04/2023 11:29:30 05/31/20 23 05/31/2023 US, pelvi s No observ ation record ed. [email or web address] [address], [place], [address], 06/04/2023 11:29:30 08/02/20 23 08/02/2023 US, trans vagin al No observ ation record ed. [email or web address] [address], [place], [address], 08/02/2023 18:05:39 08/02/20 23 08/02/2023 US, trans vagin al No observ ation record ed. [email or web address] [address], [place], [address], 08/11/2023 13:32:37 Result Notes None recorded. Problems Name Problem SNOMED Code Status Onset Date Resolution Date Notes Provider Name and Address Organization Details Recorded Time Cyst of ovary 91885388 Completed 201001/15/2021 OVARIAN CYST;Pra ctice ID: 0001 Mercedez Edmonds [facility] 16:53:20 Amenorrh ea [id number] Completed 201101/15/2021 AMENORRH EA;Pract ice ID: 0001 Mercedez Edmonds [facility], [facility] 16:53:01 Uterine size for dates discrepa ncy [id number] Completed 201101/15/2021 UTERINE SIZE AKBAR-ANTE PAR;Prac ky ID: 0001 Mercedez Grey [facility] 16:54:59 anatomy study Completed 201201/15[facility]20[facility];Stevenson rincon ID: 0001 Mercedez Edmonds [facility] 16:53:29 Ultrason ography Completed 201201/15/2021 Antenata l screenin g for malforma tion using ultrason ics;Prac ky ID: 0001 Mercedez bradshaw, [facility] 16:54:53 Antenata l screenin g Completed 201201/15/2021 Antenata l screenin g for malforma tion using ultrason ics;Prac ky ID: 0001 Mercedez bradshaw, [facility] 16:53:04 Congenit al malforma tion [id number] Completed 201201/15/2021 Antenata l screenin g for malforma tion using ultrason ics;Prac ky ID: 0001 Mercedez bradshaw, [facility] 16:53:15 Central nervous system malforma tion in fetus affectin g obstetri elin care [id number] Completed 201201/15/2021 Central nervous system malforma tion in fetus, antepart um;Pract ice ID: 0001 Mercedez bradshaw, [facility] 16:53:08 Routine antenata l care Completed 201201/15/2021 Supervis ion of other normal pregnanc y;Practi ce ID: 0001 Mercedez bradshaw, [facility] 16:54:25 Delivery normal [id number] Completed 201201/15/2021 Normal delivery ;Practic e ID: 0001 Mercedez bradshaw, [facility] 16:53:22 Single live from singleto n pregnanc y [id number] Completed 201201/15/2021 Mother with single liveborn ;Practic e ID: 0001 Mercedez bradshaw, [facility] 16:54:31 Postpart um care Completed 201201/15/2021 Routine postpart um follow-u p;Practi ce ID: 0001 [facility] 16:54:14 Postoper ative follow-u p visit Completed 201201/15/2021 Follow-u p examinat ion, followin g other surgery; Practice ID: 0001 Mercedez bradshaw [facility] 16:54:12 Bipolar I disorder 119085944 Completed 201201/15/2021 Bipolar I disorder , most recent episode (or current) unspecif ied;Prac ky ID: 0001 Mercedez bradshaw [facility] 16:53:06 Pregnanc y test negative [id number] Completed 201201/15/2021 Negative Pregnanc y Test;Pra ctice ID: 0001 [facility] 16:54:18 Implanta tion of subcutan eous contrace ptive Completed 201201/15/2021 Insertio n of implanta ble subderma l contrace ptive;Pr actice ID: 0001 Mercedez bradshaw [facility] 16:53:54 Speciali zed medical examinat ion Completed 201201/15/2021 Routine gynecolo gical examinat ion;Prac ky ID: 0001 Mercedez bradshaw [facility] 16:54:42 Screenin g for malignan t neoplasm of cervix Completed 201201/15/2021 Pap Smear;Pr actice ID: 0001 Mercedez bradshaw [facility] 16:54:27 Left lower quadrant pain [id number] Completed 201401/15/2021 Abdomina l pain, left lower quadrant ;Practic e ID: 0001 Mercedez bradshaw [facility] 16:54:00 Adult health examinat ion Completed 201401/15/2021 Routine general medical examinat ion at a health care facility ;Practic e ID: 0001 Mercedez bradshaw [facility] 16:52:59 Removal of intraute rine device Completed 201401/15/2021 REMOVAL OF IUD;Prac ky ID: 0001 Mercedez Edmonds [facility] 16:54:23 Subcutan eous contrace ptive implant present [id number] Completed 201401/15/2021 Removal Or Check Nexplano n;Practi ce ID: 0001 Mercedez Edmonds [facility] 16:54:47 Acute vaginiti s [id number] Completed 201501/15/2021 Acute vaginiti s;Practi ce ID: 0001 Mercedez Edmonds [facility] 16:52:56 Vaginola bial hernia Completed 201501/15/2021 Other specifie d noninfla mmatory disorder s of vagina;P ractice ID: 0001 Mercedez Edmonds [facility] 16:55:02 Syphilis test finding [id number] Completed 201501/15/2021 Encntr screen for infectio ns w sexl mode of transmis s;Record ed Elsewher e: No Locat ion: Keke richardson [facility] S ource: EHR Assembly Inspector lucian: N Practi ce ID: 0001 German lable Time: 08:30:00 AM Mercedez Edmonds [facility] 16:54:49 Urinary tract infectio us disease [id number] Completed 201501/15/2021 Urinary tract infectio n, site not specifie d;Practi ce ID: 0001 Mercedez Edmonds [facility] 16:54:55 Threaten ed miscarri age [id number] Completed 201501/15/2021 Threaten ed ;Practic e ID: 0001 [facility] 16:54:51 Finding of contents of cervix [id number] Completed 201501/15/2021 Weeks of gestatio n of pregnanc y not specifie d;Practi ce ID: 0001 Mercedez Edmonds [facility] 16:53:34 Clinical finding Completed 201501/15/2021 state;Re corded Elsewher e: No Locat ion: [facility] S ource: EHR Assembly Inspector lucian: N Practi ce ID: 0001 German lable Time: 04:30:00 PM Mercedez Edmonds [facility] 16:53:13 Secondar y amenorrh ea [id number] Completed 201501/15/2021 Secondar y amenorrh ea;Pract ice ID: 0001 Mercedez Edmonds [facility] 16:54:29 Pregnanc y detectio n examinat ion Completed 201501/15/2021 Encounte r for pregnanc y test, result positive ;Practic e ID: 0001 Mercedez Edmonds [facility] 16:54:16 Gestatio n less than 9 weeks [id number] Completed 201501/15/2021 Less than 8 weeks gestatio n of pregnanc y;Record ed Elsewher e: No Locat ion: [facility] S ource: EHR Assembly Inspector lucian: N Practi ce ID: 0001 German lable Time: 04:30:00 PM Mercedez Edmonds [facility] 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 16:54:37 Joint finding Completed 201501/15/2021 Pain in unspecif ied hip;Prac ky ID: 0001 Mercedez bradshaw, [facility] 16:53:58 Normal pregnanc y in multigra javi [id number] Completed 201501/15/2021 Encounte r for suprvsn of normal pregnanc y, third trimeste r;Practi ce ID: 0001 Mercedez Edmonds [facility], [facility] 16:54:05 Clinical finding Completed 201501/15/2021 Oth pregnanc y related conditio ns, unspecif ied trimeste r;Practi ce ID: 0001 Mercedez bradshaw, [facility] 16:53:10 Gestatio n period, 34 weeks [id number] Completed 201501/15/2021 34 weeks gestatio n of pregnanc y;Practi ce ID: 0001 Mercedez bradshaw, [facility] 16:53:40 Prematur e labor [id number] Completed 201501/15/2021 labor without delivery , unspecif ied trimeste r;Practi ce ID: 0001 Mercedez bradshaw, [facility] 16:54:21 Gestatio n period, 35 weeks [id number] Completed 201501/15/2021 35 weeks gestatio n of pregnanc y;Practi ce ID: 0001 Mercedez bradshaw, [facility] 16:53:43 Gestatio n period, 38 weeks [id number] Completed 201501/15/2021 38 weeks gestatio n of pregnanc y;Record ed Elsewher e: No Locat ion: Keke richardson [facility] S ource: EHR Assembly Inspector lucian: N Practi ce ID: 0001 German lable Time: 11:45:00 AM Mercedez Edmonds [facility], [facility] 16:53:45 Insuffic ient weight gain of pregnanc y [id number] Completed 201501/15/2021 Low weight gain in pregnanc y, third trimeste r;Record ed Elsewher e: No Locat ion: Keke richardson [facility] S ource: EHR Assembly Inspector lucian: N Practi ce ID: 0001 German lable Time: 11:45:00 AM Mercedez Edmonds [facility] 16:53:56 Uterine scar from previous surgery affectin g pregnanc y [id number] Completed 201501/15/2021 Matern care for low transver se scar from prev del;Prac ky ID: 0001 Mercedez Edmonds [facility] 16:54:57 Steriliz ation procedur e Completed 201501/15/2021 Encounte r for steriliz ation;Pr actice ID: 0001 Mercedez Edmonds [facility], [facility] 16:54:45 Gestatio n period, 39 weeks [id number] Completed 201501/15/2021 39 weeks gestatio n of pregnanc y;Practi ce ID: 0001 Mercedez Edmonds [facility], [facility] 16:53:47 Single liveborn born in hospital by section [id number] Completed 201501/15/2021 Single liveborn infant delivere d by c section; Recorded Elsewher e: No Locat ion: Keke richardson [facility] S ource: EHR Assembly Inspector lucian: N Practi ce ID: 0001 German lable Time: 02:15:00 PM Mercedez Edmonds [facility] 16:54:33 Lochia finding Completed 201501/15/2021 Encounte r for routine postpart um follow-u p;Practi ce ID: 0001 Mercedez Edmonds [facility] 16:54:02 Depressi ve disorder [id number] Completed 201601/15/2021 Depressi on NOS;Alex rded Elsewher e: No Locat ion: Lydiall [facility] S ource: EHR Assembly Inspector lucian: N Practi ce ID: 0001 German lable Time: 09:15:00 AM Mercedez Edmonds [facility] 16:53:[address] Concept Completed 201601/15/2021 Encntr for general adult medical exam w/o abnormal findings ;Recorde d Elsewher e: No Locat ion: [facility] S ource: EHR Assembly Inspector lucian: N Practi ce ID: 0001 German lable Time: 08:30:00 AM Mercedez Edmonds [facility] 16:54:35 Finding of body mass index [id number] Completed 201601/15/2021 Body mass index (BMI) 40.0-44. 9, adult;Re corded Elsewher e: No Locat ion: Keke e [facility] S ource: EHR Assembly Inspector lucian: N Practi ce ID: 0001 German lable Time: 08:30:00 AM Mercedez Edmonds [facility] 16:53:31 Finding of regulari ty of menstrua l cycle Completed 201701/15/2021 Irregula r bleeding ;Recorde d Elsewher e: No Locat ion: Keke e [facility] S ource: EHR Assembly Inspector lucian: N Practi ce ID: 0001 German lable Time: 04:15:00 PM Mercedez Edmonds [facility] 16:53:36 Bleeding [id number] Completed 201801/15/2021 Abnormal uterine and vaginal bleeding , unspecif ied;Alex rded Elsewher e: No Locat ion: [facility] S ource: EHR Assembly Inspector lucian: N Practi ce ID: 0001 German lable Time: 03:45:00 PM Mercedez Edmonds [facility] 16:53:27 Polycyst ic ovary syndrome [id number] Completed 201801/15/2021 Polycyst ic ovarian syndrome ;Recorde d Elsewher e: No Locat ion: [facility] S ource: EHR Assembly Inspector lucian: N Practi ce ID: 0001 German lable Time: 09:45:00 AM Mercedez Edmonds [facility] 16:54:09 Pelvic and perineal pain [id number] Completed 201801/15/2021 Pelvic and perineal pain;Rec orded Elsewher e: No Locat ion: [facility] S ource: EHR Assembly Inspector lucian: N Practi ce ID: 0001 German lable Time: 09:00:00 AM Mercedez Edmonds [facility] 16:54:07 Infectio n screenin g Completed 201801/15/2021 Encounte r for screenin g for oth infec/pa rastc diseases ;Recorde d Elsewher e: No [facility]at ion[facility] S ource: EHR Assembly Inspector lucian: N Practi ce ID: 0001 German lable Time: 11:30:00 AM Mercedez Edmonds [facility] 16:53:52 Hirsutis m [id number] Completed 201801/15/2021 Hirsusilvia m;Record ed Elsewher e: No Locat ion: [facility] S ource: EHR Assembly Inspector lucian: N Practi ce ID: 0001 German lable Time: 03:30:00 PM Mercedez Edmonds [facility], [facility] 16:53:[address] Concept Completed 201801/15/2021 Encounte r for surveill ance of other contrace ptives;R ecorded Elsewher e: No Locat ion: [facility] S ource: EHR Assembly Inspector lucian: N Practi ce ID: 0001 German lable Time: 02:45:00 PM Mercedez Edmonds [facility], [facility] 16:54:39 Contrace ptive sheath status [id number] Completed 201801/15/2021 Encounte r for initial prescrip tion of other contrace ptives;R ecorded Elsewher e: No Locat ion: [facility] S ource: EHR Assembly Inspector lucian: N Practi ce ID: 0001 German lable Time: 02:45:00 PM Mercedez Edmonds [facility], [facility] 16:53:17 Problem Notes None recorded. Procedures Surgical History Date Name Laterality Status Provider Name and Address Organization Details Recorded Time 024 Date of Last Pap Smear completed Cecilia Mathews [facility] 09/08/2024 18:12:20 023 HYSTEROSCOPY, WITH ENDOMETRIAL ABLATION (SURG) completed Jumana Santiago [facility] 06/24/2023 10:36:08 022 Control Implant Removal completed Stefania Restrepo [facility], [place], [address], [facility] 07/31/2022 16:46:30 016 Tubal Ligation completed Lauren Donaldson [facility] 01/16/2021 10:01:19 016 delivery completed Lauren Donaldson [facility] 01/16/2021 10:03:50 013 section completed [facility] 01/16/2021 10:04:10 012 cholecystectomy completed [facility] 12/19/2020 15:35:53 009 hysteroscopy completed [facility] 12/19/2020 15:35:42 006 section completed [facility] 01/16/2021 10:04:05 Imaging Results None recorded. Procedure Notes None recorded. Medical Equipment None Reported. Allergies No known drug allergies Medications Name Sig Start Date Stop Date Status Note LastModified by Organization Details LastModified Time venlafaxi ne ER 37.5 mg capsule,e xtended release 24 hr TAKE 1 CAPSULE BY MOUTH ONCE DAILY active Not Available Not Available No t Available trazodone 50 mg tablet TAKE 1 TO 2 TABLETS BY MOUTH AT BEDTIME NEEDED FOR SLEEP 05/26 completed Not Available Not Available Not Available Monistat 7 2 % vaginal cream insert 1 applicat orful by vaginal route every day at bedtime 03/27 completed Prescrib ed Elsewher e: No Locat ion: [facility] odify By: [email or web address] trick En counter DateTime : 09/20/19 13 11:00:00 AM Not Available Not Available Not Available Compazine 10 mg tablet take 1 tablet by oral route 3 times every day 08/12 completed Prescrib ed Elsewher e: No Locat ion: [facility] M odify By: [email or web address] E ncounter DateTime : 12/13/19 16 01:30:00 PM Not Available Not Available Not Available spironola ctone 100 mg tablet Take 1 tablet by mouth once daily 2024 active Not Available Not Available Not Avai lable clonazepa m 1 mg tablet TAKE 1 TABLET BY MOUTH ONCE DAILY NEEDED 08/28 completed Not Available Not Available Not Available Diflucan 150 mg tablet take 1 tablet by oral route once 12/12 completed Prescrib ed Elsewher e: No Locat ion: Radhaalexyoung richardson [facility] odify By: gillian david DateTime : 10/16/19 16 08:37:48 AM Not Available Not Available Not Available venlafaxi ne ER 150 mg capsule,e xtended release 24 hr TAKE 1 CAPSULE BY MOUTH ONCE DAILY IN THE MORNING active Not Available Not Available No t Available clotrimaz ole 1 % vaginal cream 1 applicat or at [facility] for 7 nights 03/27 completed Prescrib ed Elsewher e: No Locat ion: Radhajohn debra [facility] odify By: [email or web address] trick En counter DateTime : 12/07/19 13 10:30:00 AM Not Available Not Available Not Available sulfameth oxazole 800 mg-trimet hoprim 160 mg tablet TAKE 1 TABLET BY MOUTH EVERY 12 HOURS WITH MEALS FOR 7 DAYS 06/07 completed Not Available Not Available Not Available Macrobid 100 mg capsule take 1 capsule by oral route every 12 hours with food 12/12 completed Prescrib ed Elsewher e: No Locat ion: Radhaalex debra [facility] odify By: gillian herrerauntjessica DateTime : 10/11/19 16 08:30:00 AM Not Available Not Available Not Available ofloxacin 0.3 % ear drops INSTILL 10 DROPS INTO AFFECTED EAR(S) ONCE DAILY 08/28 completed Not Available Not Available Not Available Nortrel 1/35 (28) 1 mg-35 mcg tablet take 1 tablet by oral route every day 08/23 completed Prescrib ed Elsewher e: No Locat ion: Radhajohn debra [facility] odify By: [email or web address] Encounamrit r DateTime : 05/08/20 19 02:30:12 PM Not Available Not Available Not Available Zoloft 50 mg tablet take 1 tablet by oral route every day 11/24 completed Prescrib ed Elsewher e: No Locat ion: Radhajohn debra [facility] odify By: amaldo herrerauntjessica DateTime : 03/15/20 17 01:17:01 PM Not Available Not Available Not Available trazodone 100 mg tablet TAKE 2 TABLETS BY MOUTH ONCE DAILY AT BEDTIME active Not Available Not Available No t Available cephalexi n 500 mg capsule take 1 capsule by oral route every 6 hours 08/12 completed Prescrib ed Elsewher e: No Locat ion: Radhaalexyoung richardson [facility] odify By: gillian herreraunter DateTime : 12/13/19 16 01:30:00 PM Not Available Not Available Not Available gabapenti n 300 mg capsule TAKE 1 CAPSULE BY MOUTH THREE TIMES DAILY 08/28 completed Not Available Not Available Not Available mupirocin 2 % topical ointment APPLY A SMALL AMOUNT TO THE AFFECTED AREA BY TOPICAL ROUTE 3 TIMES PER DAY 08/28 completed Not Available Not Available Not Available gabapenti n 100 mg capsule TAKE 1 CAPSULE BY MOUTH THREE TIMES DAILY 05/26 completed Not Available Not Available Not Available Vitamin D2 1,250 mcg (50,000 unit) capsule take 1 capsule by oral route every week 08/12 completed Prescrib ed Elsewher e: No Locat ion: Radhajohn [facility] odify By: gillian Richardson ncounter DateTime : 01/30/20 16 12:20:27 PM Not Available Not Available Not Available Zoloft 25 mg tablet take 1 tablet (25MG) by oral route every day 01/22 completed Prescrib ed Elsewher e: No Locat ion: Radhaalexyoung [facility] odify By: gillian herrerauntjessica DateTime : 05/01/20 13 04:24:37 PM Not Available Not Available Not Available amoxicill in 875 mg-potass ium clavulana te 125 mg tablet 07/31 completed Not Available Not Available Not Available Plus 27 mg-1 mg tablet take 1 tablet by oral route every day 02/23 completed Prescrib ed Elsewher e: No Locat ion: Radhajohn [facility] odify By: gillian herreraunter DateTime : 02/29/20 15 02:30:40 PM Not Available Not Available Not Available Depo-Prov era 150 mg/mL intramusc ular syringe inject 1 millilit er (150MG) by intramus cular route every 3 months 08/16 completed Prescrib ed Elsewher e: No Locat ion: Keke richardson [facility] odify By: romero hair DateTime : 04/24/20 13 09:30:00 AM Not Available Not Available Not Available Abilify 5 mg tablet take 1 tablet by oral route every day 12/19 completed Prescrib ed Elsewher e: Yes Loca tion: Keke richardson [facility] odify By: gillian herrerauntjessica DateTime : 11/25/19 18 04:15:00 PM Not Available Not Available Not Available Cymbalta 20 mg capsule,d elayed release take 1 capsule (20MG) by oral route 2 times every day 01/22 completed Prescrib ed Elsewher e: No Locat ion: Keke richardson [facility] odify By: gillian herrerauntjessica DateTime : 04/24/20 13 09:30:00 AM Not Available Not Available Not Available aripipraz ole 2 mg tablet TAKE 1 TABLET BY MOUTH ONCE DAILY AT BEDTIME 08/28 completed Not Available Not Available Not Available Triveen-D uo DHA 29 mg-1 mg-400 mg oral pack take 2 by Oral route every day for 30 days 02/26 completed Prescrib ed Elsewher e: No Locat ion: Keke richardson [facility] odify By: gracy lopez DateTime : 02/22/20 15 03:00:00 PM Not Available Not Available Not Available GROUP ACCOUNT DIRECTOR-PNV-DH A 28 mg iron-1 mg-200 mg capsule take 1 capsule by oral route every day 02/23 completed Prescrib ed Elsewher e: No Locat ion: Keke [facility] odify By: gillian herrerauntjessica DateTime : 01/30/20 16 12:20:27 PM Not Available Not Available Not Available Abilify Maintena 300 mg intramusc ular suspensio n,extende d release inject by intramus cular route every month 12/19 completed Prescrib ed Elsewher e: Yes Loca tion: [facility] Fadia odify By: amkuhearlene Richardson ncounter DateTime : 11/25/19 04:15:00 PM Not Available Not Available Not Available Abilify Maintena 300 mg suspensio n,extende d rel. intramusc ular syringe INJECT 300 MG EVERY MONTH BY INTRAMUS CULAR ROUTE DIRECTED FOR 30 DAYS, FOR MOOD STABILIT Y active Not Available Not Available No t Available Vitals Date Recorded Body height Body mass index (BMI) Body weight Systolic And Diastolic Provider Name and Address Organization Details Last Updated DateTime 06/30/2023 152.53 cm 38.6 kg/m2 89072.29 g 114/76 mm[Hg] [facility] 06/30/2023 17:24:32 Date Recorded Body height Provider Name an d Address Organization Details Last Updated DateTime 08/19/2023 152.53 cm [facility] 08/19/2023 10:55:06 Date Recorded Body height Provider Name an d Address Organization Details Last Updated DateTime 08/20/2023 152.53 cm [facility] 08/20/2023 16:43:14 Date Recorded Body height Body mass index (BMI) Body weight Systolic And Diastolic Provider Name and Address Organization Details Last Updated DateTime 08/28/2024 154.94 cm 0.2 kg/m2 453.59 g 124/78 mm[Hg] Kirsten Wright [facility] 08/28/2024 17:20:43 Social History Question Answer Notes LastModified by Organizat ion Details LastModified Time Tobacco Smoking Status Never Smoker [facility] 12/19/2020 15:34:34 Are You Blind Or Do You Have Difficulty Seeing? No Information n ot available 01/16/2021 What Is Your Level Of Caffeine Consumption? Moderate Information not available 01/16/2021 In The 14 Days Before Symptom Onset, Have You Had Close Contact With A Laboratory-confirm ed COVID-19 While That Case Was Ill? No Information n ot available 05/26/2023 In The 14 Days Before Symptom Onset, Have You Had Close Contact With A Person Who Is Under Investigation For COVID-19 While That Person Was Ill? No Information not available 05/26/2023 Have You Been To An Area Known To Be High Risk For COVID-19? No Information not available 05/26/2023 Are You Deaf Or Do You Have Serious Difficulty Hearing? No Information not available 01/16/2021 What Type Of Diet Are You Following? REGULAR Information n ot available 01/16/2021 Do You Use Your Seat Belt Or Car Seat Routinely? Yes Information not available 01/16/2021 Do You Have Smoke And Carbon Monoxide Detectors In Your Home? Yes Information not available 01/16/2021 Do You Use Sunscreen Routinely? Yes Information not available 01/16/2021 Has Tobacco Cessation Counseling Been Provided? No Information not available 12/19/2020 Do You Have Difficulty Walking Or Climbing Stairs? No Information not available 07/15/2022 Sex: Unknown Functional Status Question Answer Note LastModified by Organizat ion Details LastModified Time Do you use any illicit or recreational drugs? No Information not available 12/19/2020 What is your level of alcohol consumption? Occasional Information not available 12/19/2020 Are you able to walk? YESWOREST Information not available 01/16/2021 Are you able to care for yourself? Yes Information n ot available 07/15/2022 Do you have difficulty dressing or bathing? No Information not available 07/15/2022 What is your exercise level? Occasional Information not available 01/16/2021 Mental Status Question Answer Note LastModified by Organization D etails LastModified Time Do you feel stressed (tense, restless, nervous, or anxious, or unable to sleep at night)? [id number] Information not available 01/16/2021 Family History Relationship Description Onset Age of this Age Resolved Age Notes LastModified by Organization Details LastModified Time Mother Hypertensive disorder Not available 2020 16:56:53 Maternal Grandmother Malignant tumor of breast Not available 2020 16:57:12 Maternal Grandmother Malignant neoplasm of uterus Not available 2021 12:53:03 Paternal Grandfather Heart disease Not available 2020 16:57:26 Paternal Grandfather Malignant neoplasm of lung Not available 2020 16:57:33 Sister Cyst of ovary Not available 2020 16:57:46 Notes:M-Great Grandmother arias spected ovarian cancer >70yo Medical History Condition Response Allergies (Food, seasonal, environmental ) N Other Y Blood Transfusion N Drug/Latex Allergies/Reactions N Breast Cancer N Dermatologic Disorders N Lung Disease N Defects or Inherited Disease N Breast Problem N Gestational Diabetes N Hematologic disorders N Anesthesia Complications N History of STI Y Deep Vein Thrombosis N Polycystic ovary syndrome N Anxiety Disorder Y Autoimmune disease N Arthritis N Infertility N Polyps N Acid Reflux (GERD) N History of abnormal pap Y Cancer N Stroke N Varicosities N Neurologic/Epilepsy N Endometriosis N High Cholesterol N Headaches N Fibromyalgia N Kidney Disease N Heart Problems N Kidney or Bladder Problems N Thyroid Problems N GI Problems N Eating Disorder N Anemia N Art (IVF or FET) N Psychiatric Illness N Ovarian Cancer N Diabetes N Pulmonary (TB, Asthma) N Hepatitis/Liver Disease N No Past Medical History N Eczema N Urinary Tract Infection N Abuse/Domestic Violence N Asthma N Trauma/Violence N Depression/ depression Y Heart Disease N Pre-Eclampsia N Hypertension N Osteoporosis N Thrombophilias N Gynecological History Statement/Question Response Abnormal Pap Y Date of LMP Was last menstrual period normal N STIs/STDs Y HPV Vaccine N Current Control Method Tubal Ligat ion Are cycles usually normal N Sexually Active? Y Menses Monthly N Date of Last Pap Smear 09/07/2024 Sexual Problems? Y Desired Control Method Ablation LMP Unknown Obstetrics History GPAL:G 3 P 3 0 0 3 Type Value Full Term 3 Living 3 Total 3 Past Encounters Encounter ID Performer Location Encounter Start Date Encounter Closed Date Diagnosis/Indication Diagnosis SNOMED-CT Code Diagnosis ICD10 Code Diagnosis Note [id number] [facility] [address] [address] 12/19/2020 15:23:14 12/19/2020 16:11:05 Gynecologic examination 77114805 Z01.419 Take Calcium with Vitamin D 1200mg daily if not receiving in daily diet. It is strongly advised to have an annual flu shot and up can obtain at most pharmacies . If you have not had a TDap shot in the last 10 years you should obtain one as well. Discussed with patient & provided with informatio n regarding Gardisil vaccine to prevent the 4 strains for HPV that cause cervical cancer if under age 26. Encourage safe sexual practices, to use condoms and limit partners if not already in a monogamous relationsh ip. Do monthly self breast exams. Have mammogram yearly or every other year depending on family history. BRCA testing is now available for patients with strong genetic history of female cancer. If interested contact the office. Engage in daily exercise of low impact aerobic exercise 45-60 minutes 4-5 times weekly. Avoid tobacco and illicit drugs as well as using moderation with alcohol intake less than 1-2 8 oz beverages daily. This lifestyle behavior pattern will lead to less health conditions and longer life span. If BMI greater than 25 weight watchers or dietary consult advised. Patient received above instructio ns, and questions have been answered. If you have any questions please call or respond to this email. Patient was made aware of the patient portal and may obtain a paper copy of today's plan if desired. Hx of abn pap Last pap 2019 pap only is wnl Need updated pap/hpv testing Too much menstrual blood to obtain good specimen today Will return for pap/hpv portion of WWE Menses on nexplanon sounds wnl. Will monitor & discuss cycle pattern at upcoming visit if menses turns into AUB. [id number] Stefania Restrepo , [facility] [address] [address] 01/17/2021 09:27:52 01/17/2021 10:14:17 Screening for malignant neoplasm of cervix 594456235 Z12.4 Here for pap/hpv testing--u nable to obtain specimen at [facility] due to menses flow. Specimen obtained and sent to lab Time spent in visit is a total of 15 mins with at least 50% of visit consisting of counseling and review of plan of care. Additional precaution aditya measures were taken to minimize potential exposure to the Covid-19 virus during this patient s visit, including available hand risk control product liability director upon arrive, temperatur e check and being asked a series of screening questions. All staff wore face coverings during this encounter, as well as provided additional cleaning and sanitizing of all surfaces, including countertop s, pens, chairs, door handles, light switches, etc, prior to and following the patient s visit. [id number] [facility] [address] [address] 07/15/2022 12:24:49 07/15/2022 13:27:12 Gynecologic examination 75293526 Z01.419 Z11.51 Take Calcium with Vitamin D 1200mg daily if not receiving in daily diet. It is strongly advised to have an annual flu shot and up can obtain at most pharmacies . If you have not had a TDap shot in the last 10 years you should obtain one as well. Discussed with patient & provided with informatio n regarding Gardisil vaccine to prevent the 4 strains for HPV that cause cervical cancer if under age 26. Encourage safe sexual practices, to use condoms and limit partners if not already in a monogamous relationsh ip. Do monthly self breast exams. Have mammogram yearly or every other year depending on family history. BRCA testing is now available for patients with strong genetic history of female cancer. If interested contact the office. Engage in daily exercise of low impact aerobic exercise 45-60 minutes 4-5 times weekly. Avoid tobacco and illicit drugs as well as using moderation with alcohol intake less than 1-2 8 oz beverages daily. This lifestyle behavior pattern will lead to less health conditions and longer life span. If BMI greater than 25 weight watchers or dietary consult advised. Patient received above instructio ns, and questions have been answered. If you have any questions please call or respond to this email. Patient was made aware of the patient portal and may obtain a paper copy of today's plan if desired. Pap/hpv sentSTD Screen sentGeneti c Screen discussedC olon Screen naDexa Screen naRoutine Labs PCPMammo na Pain in pelvis 00067725 R10.2 Updte US & will f/u results when comes for nexplanon removal. [id number] Phil Smith MD [facility] [address] [address] 07/16/2022 11:41:31 07/16/2022 14:14:52 Pain in pelvis 77928423 R10.2 N83.292 [id number] Stefania Restrepo [facility] [address],[place] [address] 07/31/2022 16:14:39 07/31/2022 16:50:46 Complex ovarian cyst 1691785843 03 N83.299 [facility] instructio ns reviewedCA -125 orderedHx updated.R/ P US x 6wks Counseled on:Ovarian torsion: An uncommon but serious condition called ovarian torsion (also known as adnexal torsion) occurs when the ovary, and sometimes the fallopian tube, twist on the tissues that support them. This cuts off the blood supply to the ovary, which if not treated promptly, can cause tissue in the organ to ([email or web address]) Time spent in visit is a total of 15 mins with at least 50% of visit consisting of counseling and review of plan of care. Removal of subcutaneous contraceptive 574826542 Z30.46 Removal site was cleansed with betadine and 3cc of lidocaine used for anesthesia . Device was removed in normal fashion without difficulty . Steri stips and pressure bandage placed. [id number] Phil Smith MD [facility] [address],[place] [address] 09/11/2022 09:18:03 09/11/2022 10:21:14 Cyst of left ovary [id number] 9891275 N83.202 [id number] Stefania Restrepo [facility] [address],[place] [address] 05/26/2023 17:47:01 05/26/2023 18:37:26 Abnormal uterine bleeding 4168593853 9100 N93.9 The patient and I discussed the various causes of abnormal uterine bleeding, including polyps, fibroids, hyperplasi a, atypia, anovulatio n, etc. We reviewed the typical evaluation with labs, pelvic US and possible endometria l biopsy. Briefly discussed the options available for treatment (depending on the results of evaluation ) such as hormonal treatment (OCPs, progestins ), Mirena, endometria l ablation, and surgery. We spent more than 30 minutes face to face. F/U with virtual visitSTD screen sentUPT is negative Furuncle of groin 756741 03 L02.224 Boil on right inner thigh inflamed.C oming to a head.Rx sent with ointment Counseled on medication R/B's, Most common side effects, & use. All questions were answered to patient satisfacti on. Contracept ion care management 044537224 Z30.9 [id number] Phil Smith MD [facility] [address],[facility] [place] [address] 05/31/2023 17:42:16 06/01/2023 12:46:52 Abnormal uterine bleeding 1323408361 9100 N93.9 N94.6 [id number] Stefania Restrepo [facility] [address],[facility] [place] [address] 06/04/2023 11:07:58 06/04/2023 11:33:29 Cyst of left ovary 6146732061 0355676 N83.202 US results reviewedDi fideuss etiology/o varian cysts.Plan kanwal r/p US in 6-8wks Patient is to contact office or go to nearest ED/Urgent care if fever >/= 100.1, pain, excessive bleeding, unusual drainage or swelling in area of concern; or experienci ng worsening sx's or new onset of concerning sx's; Reviewed ovarian torision s/s's and is aware medical emergency. Understand ing verbalized . All questions answered to patient satisfacti on. Menorrhagia 458975293 N9 2.0 Discussed options to help menses IUD, POP, Nexplanon, BCP's and endometria l ablation.S he is interested in consult for endometria l ablation at this time. consult recommende d to discuss.Harman lovett verbalized & agreeable to plan of care. Total time of virtual-ZO OM visit was approx 20 mins with >50% consisting of counseling , education of patient's plan of care. [id number] Phil Smith MD [facility] [address] [address] 06/07/2023 15:15:40 06/07/2023 16:07:18 Menorrhagia 508228117 N92.0 This patient is a 32-year-ol d female presents for heavy vaginal bleeding. She has longstandi ng very heavy bleeding. Her menses are regular. However, they require double protection . Patient has accidents, getting blood on her bedding and clothing. Is affected work. She changes a pad or tampon every hour. She leaks blood around the pad and tampon. This bleeding has a profound impact on her quality of life and her activities of daily living. We discussed treatment options. Patient has failed medical treatment. She has tried hormonal contracept ion with little improvemen t. Discussed endometria l ablation in detail. We reviewed video together. We spent 40 minutes face-to-fa ce. More than 50% was counseling we agreed to perform surgery. We will do this at the hospital. We are going to proceed with endometria l ablation. She has tubal ligation. [id number] Phil Smith MD [facility] [address],[place] [address] 06/16/2023 17:31:20 06/17/2023 14:17:19 Menorrhagia 049644815 N92.0 34-year-ol d female with severe menorrhagi a. We agreed to perform endometria l ablation.S he understand s the risks. She understand s that injuries may occur during the surgery that result in hospitaliz ation, more surgery and severe illness. Understand s risk of hemorrhage infection. She has completed the informed consent process and is ready to proceed. [id number] Phil Smith MD [facility] [address],[place] [address] 06/24/2023 10:05:48 06/24/2023 10:06:50 [id number] Phil Smith MD [facility] [address],[place] [address] 06/30/2023 16:43:29 06/30/2023 17:42:02 Menorrhagia 434751670 N92.0 32-year-ol d female presents for Follow-up on menorrhagi a. She is doing well. She is 1 week from a endometria l ablation procedure. She is some watery vaginal discharge. There is no foul-smell ing discharge. There is no vaginal bleeding. She is no fever or chills. She denies any nausea or vomiting. She is recovering normally. Will follow-up with her in the future and see what her bleeding has. She was instructed to give us a call for any problems. [id number] Phil Smith MD [facility] [address],[place] [address] 08/02/2023 17:12:06 08/02/2023 18:07:26 Cyst of left ovary 1728720511 2559220 N83.292 [id number] Phil Smith MD [facility] [address],[place] [address] 08/19/2023 10:49:55 08/19/2023 16:00:52 [id number] Phil Smith MD [facility] [address] [address] 08/20/2023 16:02:10 08/21/2023 13:58:56 Cyst of ovary 88936230 N83.209 33-year-ol d female who presents for short phone conversati on today. We discussed her ultrasound results. Her cyst is resolved. She is a hyperechoi c small nodule that is avascular. We talked about this and its significan ce. I consider these insignific ant. We will observe for future symptoms of ovarian cysts and recurrence of ovarian cyst. [id number] Phil Smith MD [facility] [address],[place] [address] 08/28/2024 17:03:50 08/28/2024 18:28:56 Gynecologic examination 29491305 Z01.419 Annual gynecologi elin exam performed. Patient will come back in a year unless there are new symptoms. Suggest Calcium with Vitamin D if not eating in diet. Patient advised to get annual flu shot. Recommend yearly physicals and preform monthly breast exams. Genetic testing is available for patients with family history of cancer. Engage in safe sexual practices, use condoms. Encouraged to have daily exercise. Avoid tobacco and illicit drugs, moderation of alcohol. If BMI greater than 25 dietary consult advised. If you have any questions please call or email. Health Concerns Section Related Observation LastModified by Organization Detai ls LastModified Time None Recorded Concern Status LastModified by Organization Details LastModified Time None Recorded Advance Directives Directive None Recorded Payers Insurance Date Sequence Insurance Name Policy Number Policy Earl Covered Member ID Earl Member ID Guarantor Name 08/25/2024 1 [place] [facility] Marisol John Bridgette [id number] Marisol John Bridgette 08/25/2024 1 [facility] (MEDICAID HMO) [id number] Marisol Angeles [id number] Marisol John Bridgette Notes Date Note Type Note Provider Name and Address Organization Details Recorded Time 06/30/2023 text/html 32-year-old romel sanchez presents for Follow-up on menorrhagia. She is doing well. She is 1 week from a endometrial ablation procedure. She is some watery vaginal discharge. There is no foul-smelling discharge. There is no vaginal bleeding. She is no fever or chills. She denies any nausea or vomiting. She is recovering normally. Will follow-up with her in the future and see what her bleeding has. She was instructed to give us a call for any problems. Phil Smith MD [address], [place], [address], [facility] 06/30/2023 17:35:14 08/20/2023 text/html 33-year-old romel sanchez who presents for short phone conversation today. We discussed her ultrasound results. Her cyst is resolved. She is a hyperechoic small nodule that is avascular. We talked about this and its significance. I consider these insignificant. We will observe for future symptoms of ovarian cysts and recurrence of ovarian cyst. Phil Smith MD [address], [place], [address], [facility] 08/21/2023 12:51:08 08/28/2024 text/html Annual GYNReport ed bypatient.History: no gynecologic complaints Menstrual cycle:Normal menses Urinary symptoms:No hematuria; No incontinence Vulva:No genital lesion Vagina:Normal vaginal discharge Breast:No breast pain; No breast lump Current Contraception:Tuba l ligation Sexual complaints:No sexual complaints; No pain during intercourse Menopausal Symptoms:No menopausal symptoms Psychological symptoms:No depression; No anxiety Preventive measures:Encourage self breast examination; Encourage regular exercise Phil Smith MD [address], [place], [address], [facility] 08/28/2024 18:17:13 OBGyn Episode Ob Episode Information Episode Created Date Number of Fetuses Patient Bloodtype Patient rh Status Prepregnancy Weight lbs Domestic Partner Domestic Partner Phone Father Name It Integration Architect Status 12/20/19 21 1 CLOSED Fetus Data First Name Last Name Admitted to NICU Weight (g) Sex Living Outcome Pediatric Complications Fetus ID Race Codes Race Delivery Type 3203.26 6704 F Full Term [id number] Repeat Otf Calculation Initial Otf Date Initial Exam Date Initial Exam Provider Initial Ultrasound Date Last Menstrual Period Date Ultra Sound Weeks Gestation 0 Eighteen To Twenty Week Otf Update Ultra Sound Date Fundal Height At Umbil Quickening Date Ultra Sound Latest Weeks Gestation Final Otf Confirmed By Final Otf Confirmed Date Final Otf Date Ultra Sound Latest Days Gestation 0 0 Menstrual History Last Menstrual Date Menses Monthly On Bcp Conception Prior Menses Frequency Hcg Plus Date Menarche Onset Age Delivery Information Delivery Date Delivery Type Labor Anesthesia Weeks Gestation Incision Type Labor Labor Length Hrs Delivered By Post Complications Tubal Sterilization Discharge Date Comments 3 39 Discharge Information Feeding Method Contraceptive Method Maternal HG B and HCT Levels Ob Episode Information Episode Created Date Number of Fetuses Patient Bloodtype Patient rh Status Prepregnancy Weight lbs Domestic Partner Domestic Partner Phone Father Name It Integration Architect Status 12/20/19 21 1 CLOSED Fetus Data First Name Last Name Admitted to NICU Weight (g) Sex Living Outcome Pediatric Complications Fetus ID Race Codes Race Delivery Type [id number] F Full Term [id number] Repeat Otf Calculation Initial Otf Date Initial Exam Date Initial Exam Provider Initial Ultrasound Date Last Menstrual Period Date Ultra Sound Weeks Gestation 0 Eighteen To Twenty Week Otf Update Ultra Sound Date Fundal Height At Umbil Quickening Date Ultra Sound Latest Weeks Gestation Final Otf Confirmed By Final Otf Confirmed Date Final Otf Date Ultra Sound Latest Days Gestation 0 0 Menstrual History Last Menstrual Date Menses Monthly On Bcp Conception Prior Menses Frequency Hcg Plus Date Menarche Onset Age Delivery Information Delivery Date Delivery Type Labor Anesthesia Weeks Gestation Incision Type Labor Labor Length Hrs Delivered By Post Complications Tubal Sterilization Discharge Date Comments 6 39.3 +gbs Discharge Information Feeding Method Contraceptive Method Maternal HG B and HCT Levels Ob Episode Information Episode Created Date Number of Fetuses Patient Bloodtype Patient rh Status Prepregnancy Weight lbs Domestic Partner Domestic Partner Phone Father Name It Integration Architect Status 12/20/19 21 1 CLOSED Fetus Data First Name Last Name Admitted to NICU Weight (g) Sex Living Outcome Pediatric Complications Fetus ID Race Codes Race Delivery Type [id number] M Full Term [id number] Primary Otf Calculation Initial Otf Date Initial Exam Date Initial Exam Provider Initial Ultrasound Date Last Menstrual Period Date Ultra Sound Weeks Gestation 0 Eighteen To Twenty Week Otf Update Ultra Sound Date Fundal Height At Umbil Quickening Date Ultra Sound Latest Weeks Gestation Final Otf Confirmed By Final Otf Confirmed Date Final Otf Date Ultra Sound Latest Days Gestation 0 0 Menstrual History Last Menstrual Date Menses Monthly On Bcp Conception Prior Menses Frequency Hcg Plus Date Menarche Onset Age Delivery Information Delivery Date Delivery Type Labor Anesthesia Weeks Gestation Incision Type Labor Labor Length Hrs Delivered By Post Complications Tubal Sterilization Discharge Date Comments 6 38 Discharge Information Feeding Method Contraceptive Method Maternal HG B and HCT Levels
--- NOTE | 2025-04-04 11:30 | NEURO_ITS ---
Impression: # Complains of numbness of hands. Non-diabetic. ? # Normal Nerve Conduction Study. ? # No Carpal Tunnel Syndrome or ulnar neuropathy. ? # Normal needle/EMG exam without neurogenic changes. ? # Compared to study on 11/17/22 no significant changes noted. Nerve Conduction Studies ?Stim Site NR Peak (ms) P-T Amp (?V) Site1 Site2 Delta-P (ms) Dist (cm) Andre (m/s) Left Median Anti Sensory (2-3nd Digit) Wrist ? 2.6 61.4 Wrist 2-3nd Digit 2.6 14.0 54 Wrist ? 2.5 56.1 Wrist 2-3nd Digit 2.6 14.0 54 Right Median Anti Sensory (2-3nd Digit) Wrist ? 2.8 42.9 Wrist 2-3nd Digit 2.8 14.0 50 Wrist ? 2.8 51.5 Wrist 2-3nd Digit 2.8 14.0 50 Left Radial Anti Sensory (Base 1st Digit) Wrist ? 2.2 25.6 Wrist Base 1st Digit 2.2 0.0 Right Radial Anti Sensory (Base 1st Digit) Wrist ? 1.8 34.3 Wrist Base 1st Digit 1.8 0.0 Left Ulnar Anti Sensory (5th Digit) Wrist ? 2.0 31.8 Wrist 5th Digit 2.0 14.0 70 Right Ulnar Anti Sensory (5th Digit) Wrist ? 2.0 61.5 Wrist 5th Digit 2.0 14.0 70 ?Stim Site NR Onset (ms) O-P Amp (mV) Site1 Site2 Delta-0 (ms) Dist (cm) Andre (m/s) Left Median Motor (Abd Poll Brev) Wrist ? 2.8 5.1 Elbow Wrist 4.2 26.0 62 Elbow ? 7.0 5.1 Right Median Motor (Abd Poll Brev) Wrist ? 3.1 8.4 Elbow Wrist 4.1 25.0 61 Elbow ? 7.2 8.0 ELB/ADM Wrist 0.2 0.0 Left Ulnar Motor (Abd Dig Minimi) Wrist ? 2.7 6.8 A Elbow Wrist 4.7 28.0 60 A Elbow ? 7.4 4.5 B Elbow Wrist 3.2 19.0 59 B Elbow ? 5.9 5.9 Right Ulnar Motor (Abd Dig Minimi) Wrist ? 2.6 4.2 A Elbow Wrist 4.4 26.0 59 A Elbow ? 7.0 2.7 B Elbow Wrist 3.2 19.0 59 B Elbow ? 5.8 2.4 Electromyography ?Side Muscle Nerve Root Ins Act Fibs Amp Dur Recrt Comment Right 1stDorInt Ulnar C8-T1 Nml Nml Nml Nml Nml Right Ext Indicis Radial (Post Int) C7-8 Nml Nml Nml Nml Nml Right Ext Digitorum Radial (Post Int) C7-8 Nml Nml Nml Nml Nml Right BrachioRad Radial C5-6 Nml Nml Nml Nml Nml Right PronatorTeres Median C6-7 Nml Nml Nml Nml Nml Right Abd Poll Brev Median C8-T1 Nml Nml Nml Nml Nml Right ABD Dig Min Ulnar C8-T1 Nml Nml Nml Nml Nml Right FlexPolLong Median (Ant Int) C7-8 Nml Nml Nml Nml Nml Right Abd Poll Long Radial (Post Int) C7-8 Nml Nml Nml Nml Nml Left 1stDorInt Ulnar C8-T1 Nml Nml Nml Nml Nml Left Ext Indicis Radial (Post Int) C7-8 Nml Nml Nml Nml Nml Left Ext Digitorum Radial (Post Int) C7-8 Nml Nml Nml Nml Nml Left BrachioRad Radial C5-6 Nml Nml Nml Nml Nml Left PronatorTeres Median C6-7 Nml Nml Nml Nml Nml Left Abd Poll Brev Median C8-T1 Nml Nml Nml Nml Nml Left ABD Dig Min Ulnar C8-T1 Nml Nml Nml Nml Nml Left FlexPolLong Median (Ant Int) C7-8 Nml Nml Nml Nml Nml Left Abd Poll Long Radial (Post Int) C7-8 Nml Nml Nml Nml Nml Left Biceps Musculocut C5-6 Nml Nml Nml Nml Nml Left Triceps Radial C6-7-8 Nml Nml Nml Nml Nml Left Deltoid Axillary C5-6 Nml Nml Nml Nml Nml Right Biceps Musculocut C5-6 Nml Nml Nml Nml Nml Right Triceps Radial C6-7-8 Nml Nml Nml Nml Nml Right Deltoid Axillary C5-6 Nml Nml Nml Nml Nml
== END 2025-04-04 09:35 | disposition home or self-care (01) ==
PROVIDERS: PCP Internal Medicine Infectious Disease; Visit Provider Psychiatry & Neurology Neurology
DX: E11.9 Type 2 diabetes mellitus without complications (principal)
CPT/HCPCS: 95886; 95911